=== PATIENT | male | born 1955 | race Caucasian/White ===

== ENCOUNTER → 2020-01-26 | Outpatient (CLI) | payer MEDICARE, OTHER | LOC: LAB.O 09:03 | PROVIDERS: ATTEND Orthopaedic Surgery | DX: Z01.818 Encounter for other preprocedural examination (principal) ==

== ENCOUNTER 2020-02-13 05:17 | Day surgery (SDC) | payer MEDICARE, OTHER ==
[2020-02-13] MEDS ORDERED: PROPOFOL 200 MG/20 ML VIAL IV ONE (05:18)
[2020-02-13] MEDS ORDERED: LIDOCAINE 1% 10 ML VIAL INJ ONE ×2 (05:18→09:22)
[2020-02-13] MEDS ORDERED: SODIUM CHL 0.9% 100ML MINI-BAG 100 ML IVPB ONE (07:05)
[2020-02-13] MEDS ORDERED: ceFAZolin SODIUM 1 GM VIAL ONE (07:05)
[2020-02-13] MEDS ORDERED: LACTATED RINGERS 1,000 ML ONE (07:05)
[2020-02-13] MEDS ORDERED: LACTATED RINGERS 1,000 ML IVS ONE (08:45)
[2020-02-13] MEDS ORDERED: BUPIVACAINE 0.25% INJ 30 ML VIAL INJ ONE (09:22)
[2020-02-13] MEDS: ceFAZolin SODIUM 1 GM VIAL ONE ×2 (10:01→10:21)
[2020-02-13] MEDS: VANCOMYCIN HCL INJ 1,000 MG VIAL IVPB ONE ×2 (10:01→10:21)
[2020-02-13 10:39] VITALS: O2SAT 96
[2020-02-13 11:10] VITALS: BP 157/97; TEMP 98.6
--- NOTE | 2020-02-14 09:04 | OP ---
DATE OF PROCEDURE: 02/13/20 PREOPERATIVE DIAGNOSIS: 1. Left carpal tunnel syndrome. POSTOPERATIVE DIAGNOSIS: 1. Left carpal tunnel syndrome. PROCEDURE: 1. Left carpal tunnel release. SURGEON: Jone Mayer MD. MEDICAL BILLING SUPERVISOR: Jerome Leigh CST, SA-C. ANESTHESIA: Local with sedation. COMPLICATIONS: None. FINDINGS: Thickening of the transverse carpal ligament and narrowing of the median nerve across the carpal tunnel. INDICATION: Mr. Anthony has a history of symptoms consistent with carpal tunnel syndrome. This has been going on for quite some time and he and I have discussed the risks, benefits and alternatives to operative therapy. After discussing the risks, benefits and alternatives to operative therapy, the patient has given informed consent for carpal tunnel release. PROCEDURE: The patient was brought to the Operating Room and placed in the supine position. Sedation was administered and local anesthetic was injected into the operative area under sterile conditions. After the injection of anesthetic, the arm was sterilely prepped and draped. A longitudinal incision was made directly overlying the transverse carpal ligament and blunt dissection was carried down to the ligament. The transverse carpal ligament was sharply transected along its length and a [place] elevator was used to ensure complete release of the ligament. Once release had been confirmed, the wound was thoroughly irrigated and the wound was closed with Nylon suture. A sterile dressing was placed and the patient was taken to the Day Surgery Unit. POSTOPERATIVE PLAN: The patient has been encouraged to do range of motion of the digits and will followup with us in two days. #[id number] MTDD
== END 2020-02-13 11:05 | disposition home or self-care (01) ==
LOC: AMB 05:17
PROVIDERS: ATTEND Orthopaedic Surgery
DX: G56.02 Carpal tunnel syndrome, left upper limb (principal); I10 Essential (primary) hypertension; M19.90 Unspecified osteoarthritis, unspecified site; Z79.899 Other long term (current) drug therapy
CPT/HCPCS: 01810; 64721; 80307; J0690; J3370; J3490; J7050; J7120